=== PATIENT | male | born 1985 | race African-American/Black ===

== ENCOUNTER 2019-02-12 03:33 | Inpatient (IN) ==
[2019-02-12] MEDS ORDERED: TORADOL IV ONE (04:07)
--- NOTE | 2019-02-12 04:11 | PROVIDER DOCUMENTATION ---
HPI-Male Problem - General Chief Complaint: Flank Pain Stated Complaint: HIGH BLOOD SUGAR Time Seen by Provider: 02/12/19 03:50 Source: patient Allergies/Adverse Reactions: Patient Allergies Allergy/AdvReac Type Severity Reaction Status Date / Time No Known Allergies Allergy Verified 02/12/19 03:50 Home Medications: Home Medication List Medication Instructions Recorded Confirmed Last Taken Type NK [No Home Medications] 02/12/19 02/12/19 Unknown History - History of Present Illness-Male Nature of Presenting Problem: Patient is a 33 year old morbidly obese black male with history of diabetes, cannabis abuse, and tobacco abuse who presents with persistent sharp left flank and abdomen pain for past 3-4 days. Review of Systems - Adult - REVIEW OF SYSTEMS - ADULT Constitutional: denies: chills, fever Eyes: reports: no symptoms reported Ears, Nose, Mouth & Throat: reports: no symptoms reported Cardiovascular: reports: no symptoms reported. denies: chest pain Respiratory: denies: shortness of breath Gastrointestinal: denies: abdominal pain Genitourinary: reports: see HPI, flank pain. denies: dysuria Musculoskeletal: reports: see HPI Integumentary: denies: rash Neurological: reports: no symptoms reported Psychiatric: reports: anxiety Endocrine: reports: no symptoms reported Hematologic/Lymphatic: reports: no symptoms reported Allergic/Immunologic: reports: no symptoms reported All Other Systems: Reviewed and Negative Past History - Adult - PAST MEDICAL HISTORY-ADULT Review of Records: reports: Old Records Reviewed, Nursing Assessment Review, M edications Reviewed, Social history reviewed & non-contributory. Major Childhood Illnesses: reports: denies history Cardiovascular: reports: HTN Respiratory: reports: denies history Gastrointestinal: reports: denies history Obstetrical/Gynecological: reports: denies history Genitourinary: reports: denies history Musculoskeletal: reports: chronic pain Neurological: reports: denies history Endocrine/Immune: reports: denies history Other Conditions: reports: denies history - PRIOR SURGERIES/PROCEDURES Surgical/Procedure History: reports: none - IMMUNIZATION STATUS Childhood Immunizations: See Nurse Assessment Flu Vaccine: See Nurse Assessment - FAMILY HISTORY Family History: reviewed, not pertinent - SOCIAL HISTORY Smoking: less than 1 pack/day Substance Use: marijuana Alcohol Use Frequency: occasionally Living Situation: family Physical Exam-General - CONSTITUTIONAL General Appearance: alert, obese - EYES Eyes: other (clear) - HEAD, EARS, NOSE, MOUTH & THROAT HENMT: normocephalic/atraumatic, moist mucous membranes - NECK Neck: supple - RESPIRATORY Respiratory: lungs clear - CARDIOVASCULAR Cardiovascular: regular rate, rhythm - GASTROINTESTINAL (ABDOMEN) Abdominal Exam: non tender, soft - MUSCULOSKELETAL Back Exam: CVA tenderness (left) Progress - PLAN OF CARE/RESULTS Progress/Plan/Lab Results: Vital Signs - 8 hr 02/12/19 03:35 Temperature 98.4 F Pulse Rate 104 H Respiratory Rate 20 Blood Pressure 175/91 O2 Sat by Pulse Oximetry 95 Laboratory Results - last 24 hr 02/12/19 02/12/19 02/12/19 03:40 04:23 04:23 WBC 17.33 H RBC 5.23 Hgb 14.5 Hct 42.4 MCV 81.1 MCH 27.7 MCHC 34.2 RDW Std Deviation 13.2 Plt Count 237 MPV 12.0 H Immature Gran % (Auto) 0.3 Neut % (Auto) 76.7 H Lymph % (Auto) 14.7 L Vermilion % (Auto) 7.2 Eos % (Auto) 0.9 Baso % (Auto) 0.2 Immature Gran # (Auto) 0.06 H Neut # (Auto) 13.28 H Lymph # (Auto) 2.55 Vermilion # (Auto) 1.24 H Eos # (Auto) 0.16 Baso # (Auto) 0.04 Sodium 140 Potassium 3.6 Chloride 100 Carbon Dioxide 23 L Anion Gap 17 BUN 8 Creatinine 0.9 Estimated GFR/1.73 m2 > 60 BUN/Creatinine Ratio 9 Glucose 156 H POC Glucose 138 H Calculated Osmolality 281 Calcium 9.1 Urine Source Urine Color Urine Turbidity Urine pH Ur Specific Crump Urine Protein Ur Glucose (Stick) Ur Ketones (Stick) Urine Blood Urine Nitrite Urine Bilirubin Urobilinogen Dipstick Urine Leukocytes Urine WBC (Auto) Urine RBC (Auto) U Epithel Cells (Auto) Urine Bacteria (Auto) 02/12/19 04:23 WBC RBC Hgb Hct MCV MCH MCHC RDW Std Deviation Plt Count MPV Immature Gran % (Auto) Neut % (Auto) Lymph % (Auto) Vermilion % (Auto) Eos % (Auto) Baso % (Auto) Immature Gran # (Auto) Neut # (Auto) Lymph # (Auto) Vermilion # (Auto) Eos # (Auto) Baso # (Auto) Sodium Potassium Chloride Carbon Dioxide Anion Gap BUN Creatinine Estimated GFR/1.73 m2 BUN/Creatinine Ratio Glucose POC Glucose Calculated Osmolality Calcium Urine Source CLEAN CATCH Urine Color YELLOW Urine Turbidity CLEAR Urine pH 6.5 Ur Specific Crump 1.021 Urine Protein TRACE A Ur Glucose (Stick) NEGATIVE Ur Ketones (Stick) NEGATIVE Urine Blood NEGATIVE Urine Nitrite NEGATIVE Urine Bilirubin NEGATIVE Urobilinogen Dipstick NORMAL Urine Leukocytes NEGATIVE Urine WBC (Auto) <10 Urine RBC (Auto) <10 U Epithel Cells (Auto) <10 Urine Bacteria (Auto) NEGATIVE Orders Category Date Time Status CT RENAL STONE SEARCH [CT] Stat Exams 02/12/19 04:09 Taken BMP [BASIC METABOLIC PANEL] [CHEM] Stat Lab 02/12/19 04:23 Completed CBC WITH ELECTRONIC DIFF [HEME] Stat Lab 02/12/19 04:23 Completed URINALYSIS W/POSS RFLX CULT [URINALYSIS] Stat Lab 02/12/19 04:23 Completed Hydromorphone [Dilaudid] Med 02/12/19 05:21 Discontinued 1 mg .ROUTE .STK-MED ONE Hydromorphone [Dilaudid] Med 02/12/19 05:19 Discontinued 1 mg IV NOW ONE Ketorolac [Toradol] Med 02/12/19 04:07 Discontinued 30 mg IV NOW ONE Ondansetron [Zofran] Med 02/12/19 05:20 Discontinued 4 mg .ROUTE .STK-MED ONE Ondansetron [Zofran] Med 02/12/19 05:19 Discontinued 4 mg IV NOW ONE Piperacillin/Tazobactam [Zosyn] 4.5 gm Med 02/12/19 05:57 Active 0.9% Sodium Chloride Inj [Ns] 100 ml IV NOW Result Diagrams: 02/12/19 04:23 02/12/19 04:23 - CT/MRI 1 CT Study: Abdomen, Pelvis CT Results: acute diverticulitis of upper descending colon - CONSULTS/PCP/HOSPITALIST Notification #1 *Consult/PCP/Hospitalist*: Dr. Starr, surgeon construction project mgr Time Discussed: 05:55 Reason/Comments: admit to hospitalist at [facility], Dr. Hogan Consult Disposition: Admit Departure - Departure Date of Disposition Decision: 02/12/19 Time of Disposition Decision: 06:01 DIAGNOSIS: Acute diverticulitis Leukocytosis Qualifiers: Leukocytosis type: unspecified Qualified Code(s): D72.829 - Elevated white blood cell count, unspecified Disposition: ADMITTED INPATIENT 09 Certified Medical Emergency: Emergent Condition: Stable Referrals and Follow-Ups: None,PCP [Primary Care Provider] - - Critical Care Note This patient required my direct & personal management of CC.: No Attestation - Physician/ KEON Attestation Patient care was provided by Advanced Practice Provider:: No The physician spent face to face time with patient:: Yes Advanced Practice Provider documentation review:: Supervising physician onsite and consulted in the evaluation and care of this patient. The physician did have a face to face encounter with the patient.
[2019-02-12 04:44] LABS: BILIRUBIN URINE NEGATIVE (NEGATIVE); BLOOD URINE NEGATIVE (NEGATIVE); COLOR YELLOW; GLUCOSE URINE NEGATIVE (NEGATIVE); KETONE URINE NEGATIVE (NEGATIVE); LEUKOCYTES URINE NEGATIVE (NEGATIVE); NITRITE URINE NEGATIVE (NEGATIVE); PH URINE 6.5; PROTEIN URINE TRACE mg/dL (NEGATIVE); SP GRAVITY URINE 1.021; TURBIDITY URINE CLEAR (CLEAR); URINE SOURCE CLEAN CATCH; UROBILINOGEN URINE NORMAL (NORMAL)
[2019-02-12 04:45] LABS: UR EPITHELIAL CELLS <10 /HPF (<10); URINE BACTERIA NEGATIVE /HPF; URINE RBC <10 /HPF (<10); URINE WBC <10 /HPF (<10)
[2019-02-12 05:09] LABS: BASO# 0.04 X1000 (0.0-0.2); BASO% 0.2 % (0.0-0.8); EOS# 0.16 X1000 (0.0-0.7); EOS% 0.9 % (0.0-10.0); HEMATOCRIT 42.4 % (42.0-52.0); HEMOGLOBIN 14.5 g/dL (14.0-18.0); IMM GRAN# 0.06 X1000 (0.0-0.04); IMM GRAN% 0.3 % (0.0-0.5); LYMPH# 2.55 X1000 (1.2-3.4); LYMPH% 14.7 % (20.5-51.1); MCH 27.7 PG (27-31); MCHC 34.2 g/dL (33-37); MCV 81.1 FL (81-99); MONO# 1.24 X1000 (0.11-0.59); MONO% 7.2 % (1.7-9.3); NEUT# 13.28 X1000 (1.4-6.5); NEUT% 76.7 % (42.2-75.2); PLT 237 X1000 (130-400); RBC 5.23 XMIL (4.7-6.1); RDW 13.2 % (11.5-14.5); WBC 17.33 X1000 (4.8-10.8)
[2019-02-12] MEDS ORDERED: ZOFRAN IV ONE (05:19)
[2019-02-12] MEDS ORDERED: DILAUDID IV ONE (05:19)
[2019-02-12] MEDS ORDERED: ZOFRAN ONE (05:20)
[2019-02-12] MEDS ORDERED: DILAUDID ONE (05:21)
[2019-02-12 05:30] LABS: AGAP 17; BUN 8 mg/dL (8-22); CALCIUM 9.1 mg/dL (8.8-10.2); CHLORIDE 100 mmol/L (98-107); COSMO 281; CREATININE 0.9 mg/dL (0.7-1.2); ESTIMATED GFR > 60; GLUCOSE 156 mg/dL (70-104); POTASSIUM 3.6 mmol/L (3.5-5.1); SODIUM 140 mmol/L (136-145); TCO2 23 mmol/L (25-35)
[2019-02-12] MEDS ORDERED: ZOSYN 4.5 GM in NS 100 ML IV ONE (05:57)
[2019-02-12] MEDS ORDERED: MORPHINE IV PRN (06:02)
[2019-02-12] MEDS ORDERED: NS 1,000 ML IV ONE ×2 (06:02→13:56)
[2019-02-12] MEDS ORDERED: ZOFRAN IV PRN (06:02)
--- NOTE | 2019-02-12 07:14 | Diag Imaging Result Doc PS360 ---
CT RENAL STONE SEARCH - 02/12/2019 INDICATION: left flank pain COMPARISON: None FINDINGS: The lung bases are clear and the heart size is normal. No radiodense renal stones. No hydronephrosis or hydroureter. Abdominal organs are all normal. There is significant focal inflammation around diverticula of the descending colon. No bowel obstruction. No free air or drainable fluid collection. Normal appendix. Urinary bladder is collapsed. Prostate and rectum are normal. Bones are intact. IMPRESSION: Acute diverticulitis of the descending colon. No complication. This exam was performed using automated exposure control, adjustment of mA or kV according to patient size, and/or use of iterative reconstruction technique Electronically signed by Alli Gilliland 02/12/2019 7:12 AM
--- NOTE | 2019-02-12 10:54 | HISTORY AND PHYSICAL ---
PRIMARY CARE PHYSICIAN: None. CHIEF COMPLAINT: Left lower quadrant and flank pain over the past 3 to 4 days that progressively worsened. HISTORY OF PRESENTING ILLNESS: This is a 33-year-old, morbidly obese male who presents to [facility] ER with complaints of left lower quadrant and left flank pain over the past 3 to 4 days that progressively worsened. Describes the pain as sharp and persistent. Workup showed a white blood cell count of 7.33. Urinalysis was negative. Renal CT showed acute diverticulitis of the descending colon, so he will be admitted to the [facility], [place] with surgical consultation for further evaluation and treatment. PAST MEDICAL HISTORY: Diabetes type 2, hypertension, and chronic pain. PAST SURGICAL HISTORY: None. FAMILY HISTORY: Reviewed and noncontributory. SOCIAL HISTORY: Currently lives with family. He is a pack and a half a day smoker and has done so for the past 10+ years. Denies any alcohol and uses marijuana occasionally. ALLERGIES: He has no known drug allergies. HOME MEDICATIONS: He does not take any medications routinely at this time according to the patient. LABORATORY DATA: Showed a white blood cell count of 17.33, hemoglobin 14.5, hematocrit 42.4, platelets 237,000. Sodium 140, potassium 3.6, chloride 100, CO2 23, BUN of 8, creatinine 0.9, glucose 156. Urinalysis is negative. Renal CT showed an impression of acute diverticulitis of the descending colon, no complication. REVIEW OF SYSTEMS: He denied any fever, chills, blurred vision, dizziness, chest pain, coughing, shortness of breath. He had left lower quadrant and left flank pain. Denied any nausea, vomiting, constipation, diarrhea, burning or hurting with urination. PHYSICAL EXAMINATION: On arrival he had a temperature of 98.4 degrees, pulse 104, respirations 20, blood pressure 175/91, saturating 95% on room air. GENERAL: This is a 33-year-old, morbidly obese male with a BMI of 46.1, who is sitting on the side of the bed and answers questions appropriately. HEEMNT: Normocephalic, atraumatic. Normal ENT inspection. Oropharynx and nares are clear. EYES: Pupils are equal, round, reactive to light and accommodation. Extraocular movements are intact. NECK: Normal inspection. Normal range of motion. LUNGS: Clear to auscultation bilaterally with equal lung expansion and chest wall movement. HEART: With regular rate and rhythm. No murmurs, rubs, or gallops. ABDOMEN: He has tenderness to the left lower quadrant to palpation. Left CVA tenderness. Bowel sounds are present x4 quadrants. MUSCULOSKELETAL: He had 5/5 strength x4 extremities. NEUROLOGICAL: The cranial nerves 2-12 appear grossly intact. ASSESSMENT: 1. Left lower quadrant and left flank pain. 2. An acute diverticulitis. 3. Leukocytosis. 4. Tobacco abuse. 5. Marijuana abuse. PLAN: He will be admitted to the [facility], [place]. Placed on a clear liquid diabetic diet. We will consult surgery, place him on pattern blood sugars with sliding scale insulin, morphine 2 mg IV q.2 hours p.r.n. normal saline at 125 mL an hour, Zofran 4 mg IV q.4 hours p.r.n., Zosyn 4.5 g IV q.6. Recheck a CBC, BMP in the a.m. Further orders after seen by attending and by sql server consultant. Dictated by CHRISTIANA Millan for Orestes Singer MD cc: CHRISTIANA Millan MD
[2019-02-12] MEDS ORDERED: ZOSYN 4.5 GM in NS 100 ML IV SCH (12:00)
[2019-02-12] MEDS: HUMULIN R SUBQ SCH ×3 (13:05→22:18)
[2019-02-12 13:31] LABS: INR 1.06
[2019-02-12 13:32] LABS: PTT 34.6 Seconds (22.3-41.8)
[2019-02-12 13:41] LABS: BUN 10 mg/dL (8-22); CALCIUM 9.3 mg/dL (8.8-10.2); CREATININE 1.1 mg/dL (0.7-1.2); ESTIMATED GFR > 60; GLUCOSE 159 mg/dL (70-104); GOT 13 U/L (10-34); TCO2 24 mmol/L (25-35); TOTAL BILIRUBIN 0.66 mg/dL (0.20-1.00)
[2019-02-12 13:55] LABS: AGAP 17; ALB/GLOB RATIO 1.8; ALBUMIN 4.5 g/dL (3.5-5.0); ALKALINE PHOSPHATASE 56 U/L (32-122); CHLORIDE 98 mmol/L (98-107); COSMO 280; GPT 16 U/L (10-44); POTASSIUM 3.7 mmol/L (3.5-5.1); SODIUM 139 mmol/L (136-145)
[2019-02-12 13:56] LABS: CK PROFILE 462 U/L (24-204)
[2019-02-12] MEDS ORDERED: APRESOLINE IV PRN (13:58)
[2019-02-12] MEDS: ZOSYN 4.5 GM in NS 100 ML IV SCH ×2 (14:06→20:16)
[2019-02-12 14:17] LABS: CK INDEX 0.6 (0.0-2.5); CK-MB 2.59 ng/mL (0.0-5.0)
[2019-02-12] MEDS: NS 1,000 ML IV SCH (16:23)
--- NOTE | 2019-02-12 21:33 | GENERAL SURGERY CONSULTATION ---
DATE: 02/12/2019 CHIEF COMPLAINT: Abdominal pain. REASON FOR CONSULTATION: Diverticulitis. HISTORY OF PRESENT ILLNESS: This is a 33-year-old gentleman with history of diabetes who presented to the emergency department with a several day history of left-sided abdominal discomfort that became more severe. He had a CT scan obtained that showed descending colon diverticulitis. He has never had a colonoscopy. Bowel function has been normal. He did have some bleeding he says this afternoon, but denies any bleeding per rectum prior to this. He is admitted to medicine service for management and IV antibiotics. He feels better over the course of the day today. MEDICAL HISTORY: 1. Obesity. 2. Diabetes. 3. Hypertension. SURGICAL HISTORY: No abdominal surgery. SOCIAL HISTORY: He does smoke. Drinks occasionally. FAMILY HISTORY: Reviewed and negative for colorectal cancer. REVIEW OF SYSTEMS: A 10-point review of systems is negative other than what is mentioned in HPI. PHYSICAL EXAMINATION: Vital signs: Afebrile currently, pulse 91, blood pressure 161/98. General: He is alert, in no acute distress. HEENT: There is no scleral icterus. No cervical mass. Cardiovascular: Normal rate. Pulmonary: No increased work of breathing. Abdomen: Soft. He is mildly tender along the left side of his abdomen, but no peritonitis. Integument: Warm and dry. Psychiatric: Appropriate affect. Neurologic: No gross deficits. Peripheral vascular: Trace lower extremity edema. LABS: White count 17, hematocrit 42, platelets 237,000. INR is 1.06. Creatinine is 1.1. LFTs are normal. Troponins are normal. Lactate is 1.6. Urinalysis is negative for nitrates and leukocytes. I reviewed his CT scan which was noncontrast, renal protocol, and showed acute diverticulitis without perforation and without abscess. ASSESSMENT AND PLAN: A 33-year-old gentleman with uncomplicated diverticulitis of the descending colon. He is already feeling better after less than 24 hours of antibiotics. Will continue bowel rest and intravenous antibiotics as current. Will encourage him to be out of bed. He will need a followup colonoscopy in about 6 weeks after resolution. Otherwise, we will keep him n.p.o. and plan on advancing his diet as his pain resolves. cc: Gamaliel Starr MD
[2019-02-13] MEDS: ZOSYN 4.5 GM in NS 100 ML IV SCH ×3 (01:28→13:28)
[2019-02-13] MEDS: NS 1,000 ML IV SCH ×2 (01:51→13:28)
[2019-02-13] MEDS: HUMULIN R SUBQ SCH ×3 (05:40→16:27)
--- NOTE | 2019-02-13 07:17 | HISTORY AND PHYSICAL ---
ADDENDUM: Patient was seen and examined by myself. Full note dictated and discussed with nurse practitioner. The patient is a 33-year-old, morbidly obese male who has a history of diabetes, frequent cannabis and tobacco use. We are going to admit him to the hospital. Currently, he is awake, alert. His blood pressures are elevated at 175/91. He has a history of diverticulitis. I am going to place him on antibiotics and we will follow. cc: Orestes Singer MD
[2019-02-13 07:47] LABS: BASO# 0.02 X1000 (0.0-0.2); BASO% 0.2 % (0.0-0.8); EOS# 0.18 X1000 (0.0-0.7); EOS% 1.7 % (0.0-10.0); HEMATOCRIT 38.1 % (42.0-52.0); HEMOGLOBIN 12.8 g/dL (14.0-18.0); IMM GRAN# 0.03 X1000 (0.0-0.04); IMM GRAN% 0.3 % (0.0-0.5); LYMPH% 27.4 % (20.5-51.1); MCH 27.8 PG (27-31); MCHC 33.6 g/dL (33-37); MCV 82.8 FL (81-99); MONO# 0.83 X1000 (0.11-0.59); MONO% 7.8 % (1.7-9.3); MPV 11.4 FL (7.4-10.4); NEUT# 6.62 X1000 (1.4-6.5); NEUT% 62.6 % (42.2-75.2); PLT 203 X1000 (130-400); RDW 13.4 % (11.5-14.5); WBC 10.58 X1000 (4.8-10.8)
[2019-02-13 08:10] LABS: AGAP 13; BUN 9 mg/dL (8-22); CALCIUM 8.5 mg/dL (8.8-10.2); CHLORIDE 101 mmol/L (98-107); COSMO 277; CREATININE 0.9 mg/dL (0.7-1.2); ESTIMATED GFR > 60; GLUCOSE 115 mg/dL (70-104); POTASSIUM 3.3 mmol/L (3.5-5.1); SODIUM 139 mmol/L (136-145); TCO2 25 mmol/L (25-35)
[2019-02-13 09:54] LABS: HEMOGLOBIN A1C 6.4 % (4.8-6.0)
[2019-02-13 15:14] VITALS: BP 171/99
--- NOTE | 2019-02-13 22:53 | GENERAL SURGERY PROGRESS NOTE ---
DATE: 02/13/2019 SUBJECTIVE: Mr. Granda feels okay. No fever tonight. No tachycardia. OBJECTIVE: Vital Signs:: Blood pressure 160/108, oxygen saturation 100%. General: He is alert. Cardiovascular: Normal rate. Pulmonary: No increased work of breathing. Abdomen: Soft. He is much less tender over the left side of the abdomen, and nondistended. There is no peritonitis. LABORATORY DATA: White count is now normal at 10, hematocrit 38, creatinine 0.9. ASSESSMENT AND PLAN: This is a 33-year-old gentleman with uncomplicated descending colon diverticulitis which seems to be improving. He is tolerating clear liquids. We will plan on advancing his diet tomorrow and let him go home on oral antibiotics if he feels better tomorrow. cc: Gamaliel Starr MD
--- NOTE | 2019-02-14 18:51 | DISCHARGE SUMMARY ---
ADMISSION DATE: 02/12/2019 DISCHARGE DATE: 02/13/2019 DISCHARGE DIAGNOSES: 1. Acute diverticulitis. 2. Tobacco use. 3. Marijuana abuse. PROCEDURE: Renal CT showed acute diverticulitis of the descending colon. HOSPITAL COURSE: This is a 33-year-old morbidly obese, male, who presented to the emergency department of [place] complaining of left lower quadrant abdominal pain that has been going on for last 4 days. He has was found out to have a diverticulitis and he was started on IV antibiotics. The next day patient felt much better and he wanted to go home. We agree because the white cell count was back to normal, the pain is definitely much better according to the patient, he was not spiking a fever so he is going to be discharged in stable condition with oral antibiotics. DISCHARGE PHYSICAL EXAMINATION: Vital signs: Temperature 98.3 degrees, heart rate 72, respiratory rate 20, blood pressure 171/99, O2 saturation 100% on room air. General: This is a 33-year-old male, lying in bed, in no acute distress. Cardiovascular exam: S1, S2 heard. No murmurs, gallops, or rubs. Regular rate and rhythm. Respiratory exam: Clear bilaterally to auscultation. No work of breathing or using accessory muscles. Abdomen: Soft, nontender to palpation. Bowel sounds present. No organomegaly. Extremities: No clubbing, cyanosis, or edema. Peripheral pulses present in both legs. Neurological: The patient is alert and oriented x3. Moves all 4 extremities DISCHARGE DISPOSITION: Home to self-care. LIST OF MEDICATIONS: 1. Levofloxacin 750 mg 1 tablet p.o. daily for 10 days. 2. Flagyl 500 mg 1 tablet p.o. 3 times per day for 10 days. 3. Lisinopril 10 mg 1 tablet p.o. daily. 4. Tramadol 50 mg 1 tablet p.o. every 4 hours as needed. cc: Faizan Miller MD
== END 2019-02-13 18:00 | disposition home or self-care (01) | DRG 392 ==
LOC: P.ED 03:33 → SUATTDRO 07:05 → 3N 07:05
PROVIDERS: ATTEND Internal Medicine